=== PATIENT | female | born 1980 | race Caucasian/White ===

== ENCOUNTER 2019-08-02 10:23 | Emergency (ER) | payer OTHER ==
[~2019-08-02] VITALS: Ht 157.5 cm; Wt 79.4 kg
[2019-08-02] MEDS ORDERED: PROPRANOLOL 4040 MG PO (10:49)
[2019-08-02 11:26] LABS: ABSOLUTE LYMPHOCYTES 1.5 thou/uL (0.8-5.3); ABSOLUTE MONOCYTES 0.3 thou/uL (0.0-1.2); ABSOLUTE NEUTROPHILS 3.2 thou/uL (1.6-8.1); BASOPHILS 0.4 %; EOSINOPHILS 0.3 %; HEMATOCRIT 39.2 % (37.0-47.0); HEMOGLOBIN 13.6 gm/dL (12.0-15.0); LYMPHOCYTES 29.4 %; MCH 30.3 pg (26.0-34.0); MCHC 34.7 g/dL (28.0-37.0); MCV 87.2 fL (80.0-100.0); MPV 7.2 fl. (7.2-11.1); NUCLEATED RBCS 0 /100WBC; PLATELET COUNT* 185 thou/uL (150-400); POLYS 63.9 %; RDW-CV 13.3 % (10.5-14.5)
[2019-08-02 11:29] LABS: INFLUENZA A ANTIGEN Negative (Negative); INFLUENZA B ANTIGEN Negative (Negative)
[2019-08-02 11:34] LABS: CALCIUM 8.7 mg/dL (8.5-10.1); CREATININE 0.7 mg/dL (0.6-1.3); POTASSIUM 3.5 mmol/L (3.5-5.1)
[2019-08-02 11:39] LABS: ALBUMIN 3.6 g/dL (3.4-5.0); TOTAL BILIRUBIN 0.5 mg/dL (<0.1-1.0); TOTAL PROTEIN 7.1 g/dL (6.4-8.2)
[2019-08-02 12:36] LABS: URINE BILIRUBIN NEGATIVE (Negative); URINE BLOOD TRACE (Negative); URINE CLARITY CLEAR; URINE COLOR ORANGE; URINE GLUCOSE-RANDOM NEGATIVE (Negative); URINE KETONES NEGATIVE (Negative); URINE LEUKOCYTES-REFLEX NEGATIVE (Negative); URINE NITRITE-REFLEX NEGATIVE (Negative); URINE PROTEIN NEGATIVE (Negative); URINE SPECIFIC GRAVITY <= 1.005 (1.005-1.030); URINE UROBILINOGEN 0.2 E.U./dl (0.2-1.0)
[2019-08-02] MEDS ORDERED: TESSALON PERLE100 MG PO (13:46)
[2019-08-02] MEDS ORDERED: VISTARIL 25 MG25 M1 PO (13:46)
[2019-08-02] MEDS ORDERED: PROAIR HFA8.5 GM INH (13:46)
[2019-08-02] MEDS ORDERED: TYLENOL WITH CO1 TA1 PO (13:47)
[2019-08-02 14:17] VITALS: BP 122/77
--- NOTE | 2019-08-02 17:02 | EKG ---
[place] [address] ELECTROCARDIOGRAM REPORT Name: JACK GARCIA Room: [facility]#: [id number] Admission: 08/02/19 Attend Phys: Discharge: 08/02/19 Date of : 80 Date of Service: 08/02/19 1111 Report #: [id number] THIS REPORT FOR: //name// [facility] ED Test Date: 2019-08-02 Test Time: 11:11:29 Pat Name: JACK DALLAS Department: Room: Gender: F [employer] Operator: : 1980 Requested By: Bambi Bright Order Number: [id number] MD: Abdullahi Diop Measurements Intervals [place] Rate: 69 P: -7 IN: 126 QRS: 49 QRSD: 97 T: 29 QT: 372 QTc: 399 Interpretive Statements Sinus rhythm No previous ECG available for comparison Electronically Signed On 08-02-2019 17:00:52 CDT by Abdullahi Diop [email or web address] <ELECTRONICALLY SIGNED> By: Abdullahi Diop MD, [facility] 08/02/19 1700 1111 1111 Abdullahi Diop MD, FACC /EPI
== END 2019-08-02 14:17 | disposition home or self-care (01) ==
LOC: M.ERS 10:23
PROVIDERS: Physician Assistant
DX: J06.9 Acute upper respiratory infection, unspecified (principal); G43.909 Migraine, unspecified, not intractable, without status migrainosus; Z98.51 Tubal ligation status; Z98.890 Other specified postprocedural states